=== PATIENT | female | born 1980 | race Caucasian/White ===

== ENCOUNTER 2021-04-05 14:46 | Outpatient (RCR) | payer OTHER | END 2021-06-05 10:37 | disposition home or self-care (01) | LOC: WSOH 14:46 | DX: S61.235A Puncture wound without foreign body of left ring finger without damage to nail, initial encounter (principal); F41.8 Other specified anxiety disorders; Z77.21 Contact with and (suspected) exposure to potentially hazardous body fluids; Y99.0 Civilian activity done for income or pay; Z98.890 Other specified postprocedural states ==

== ENCOUNTER → 2021-05-30 | Outpatient (CLI) | payer BC | LOC: COL.RAD 05-29 12:45 | DX: N94.6 Dysmenorrhea, unspecified (principal); Z97.5 Presence of (intrauterine) contraceptive device ==